=== PATIENT | female | born 1985 | race African-American/Black ===

== ENCOUNTER 2018-08-25 12:34 | Emergency (ER) | payer MEDICAID ==
[~2018-08-25] VITALS: Ht 167.6 cm; Wt 72.0 kg
[2018-08-25] MEDS ORDERED: KETOROLAC 30MG/ML VIAL IV STA (13:36)
[2018-08-25] MEDS ORDERED: ONDANSETRON HCL 4MG/2ML INJ IV STA (13:36)
[2018-08-25] MEDS ORDERED: SODIUM CHLORIDE 0.9% 1000ML BAG (SEPSIS BOLUS) IV ONE (13:45)
[2018-08-25] MEDS ORDERED: FAMOTIDINE 20MG/2ML VIAL IV ONE (14:30)
[2018-08-25 14:39] LABS: BASOPHILS % 0.9 % (0.0-2.0); EOSINOPHILS % 0.8 % (0.0-5.0); HEMATOCRIT. 33.1 % (36.0-48.0); HEMOGLOBIN. 10.7 g/dL (12.0-16.0); MEAN CORPUSCULAR HEMOGLOBIN 27.1 pg (28.0-32.0); MEAN CORPUSCULAR VOLUME 83.8 fL (81.0-99.0); MEAN PLATELET VOLUME 7.6 fl (7.4-10.4); MONOCYTES % 11.3 % (2.0-8.0); PLATELET 462 x1000/uL (130-400); RED BLOOD CELL COUNT 3.95 mill/uL (4.2-5.4); RED CELL DISTRIBUTION WIDTH 17.8 % (11.6-14.6)
[2018-08-25 14:45] LABS: CHLORIDE 106 mEq/L (98-107)
[2018-08-25 14:46] LABS: PROTHROMBIN TIME 10.2 sec (9.6-11.0)
[2018-08-25 15:01] LABS: HCG SCREEN NEGATIVE
[2018-08-25 15:07] LABS: CLARITY URINE CLEAR (CLEAR); COLOR URINE YELLOW (YELLOW); KETONES URINE TRACE (NEGATIVE); LEUKOCYTE ESTERASE URINE NEGATIVE (NEGATIVE); NITRITE URINE NEGATIVE (NEGATIVE); OCCULT BLOOD URINE NEGATIVE (NEGATIVE); PROTEIN URINE NEGATIVE (NEGATIVE); SPECIFIC GRAVITY URINE 1.025 (1.005-1.030); UROBILINOGEN URINE 0.2 E.U./dL (0.2-1.0)
[2018-08-25 17:55] VITALS: BP 116/28
== END 2018-08-25 17:56 | disposition home or self-care (01) ==
LOC: ER 12:34
DX: R10.32 Left lower quadrant pain (principal); R11.10 Vomiting, unspecified; R19.7 Diarrhea, unspecified; Z88.8 Allergy status to other drugs, medicaments and biological substances
CPT/HCPCS: 36415; 74176; 80053; 81003; 81025; 84703; 85025; 85610; 87040; 87086; 96361; 96374; 96375; 99284; J1885; J2405; J3490; J7030